=== PATIENT | male | born 1940 | race Caucasian/White ===

== ENCOUNTER 2018-03-25 16:14 | Inpatient (IN) | payer MEDICARE, OTHER ==
[~2018-03-25] VITALS: Ht 177.8 cm; Wt 93.0 kg
[~2018-03-25 16:14] MED LIST: ALBU18HF2 INH; ASPI-1053 PO; ATOR20TA66 PO; DOCU100C40 PO; DULO-31 PO; HYDR-4353 PO; IBUP-24 PO; LANS30CA56 PO; METO25TA6 PO; MIRT15TA8 PO; TEMA15CA5 PO
[2018-03-25 16:47] LABS: BASOPHILS % (AUTO) 0.5 % (0-1); EOSINOPHILS # (AUTO) 0.1 X10'3 (0-0.9); EOSINOPHILS % (AUTO) 1.3 % (0-6); HEMATOCRIT 29.7 % (42.0-52.0); HEMOGLOBIN 9.4 g/dl (14.0-17.9); LYMPHOCYTES # (AUTO) 1.9 X10'3 (1.1-4.8); LYMPHOCYTES % (AUTO) 20.3 % (21-51); MEAN CORPUSCULAR HEMOGLOBIN 23.1 PG (27.0-31.0); MEAN CORPUSCULAR HGB CONC 31.8 % (33.0-36.5); MEAN CORPUSCULAR VOLUME 72.8 FL (78-98); MEAN PLATELET VOLUME 9.4 FL (7.4-10.4); MONOCYTES # (AUTO) 0.5 X10'3 (0-0.9); MONOCYTES % (AUTO) 5.7 % (2-12); NEUTROPHILS % (AUTO) 72.2 % (42-75); PLATELET COUNT 296 X10'3 (140-440); RED BLOOD COUNT 4.08 X10'6 (4.70-6.10); RED CELL DISTRIBUTION WIDTH 17.6 % (11.5-14.5); WHITE BLOOD COUNT 9.5 X10'3 (4.5-11.0)
[2018-03-25 17:06] LABS: ALANINE AMINOTRANSFERASE 20 U/L (12-78); ALBUMIN 3.8 G/DL (3.4-5.0); ALBUMIN/GLOBULIN RATIO 1.2 (1.1-1.5); ALKALINE PHOSPHATASE 64 IU/L (46-116); ANION GAP 12 (8-16); ASPARTATE AMINO TRANSFERASE 13 U/L (10-37); BILIRUBIN,TOTAL 0.6 MG/DL (0.1-1.0); BLOOD UREA NITROGEN 18 MG/DL (7-18); CALCIUM 8.6 MG/DL (8.5-10.1); CHLORIDE 107 MMOL/L (99-107); GLUCOSE 184 MG/DL (70-104); POTASSIUM 4.2 MMOL/L (3.5-5.1); SODIUM 143 MMOL/L (135-145); TOTAL CARBON DIOXIDE 23.7 MMOL/L (24-32); TOTAL PROTEIN 7.1 G/DL (6.4-8.2); eGFR 33 ML/MIN
[2018-03-25 17:30] LABS: PARTIAL THROMBOPLASTIN TIME 22 SECONDS (22-32); PROTHROMBIN TIME 10.7 SECONDS (9.0-12.0)
[2018-03-25] MEDS ORDERED: normal saline 1000ML IV soln IVB ONE (20:15)
[2018-03-25] MEDS ORDERED: HYDROcodone/acetaminophen 10/325mg tab PO PRN (21:55)
[2018-03-25] MEDS ORDERED: magnesium hydroxide 30ml (MOM) UD suspension PO PRN (21:55)
[2018-03-25] MEDS ORDERED: acetaminophen 325mg tablet PO PRN ×2 (21:55)
[2018-03-25] MEDS ORDERED: mag hydrox/Alum hydrox/simeth 30ml oral suspension PO PRN (21:55)
[2018-03-25] MEDS ORDERED: ondansetron/PF 4mg/2ml inj IV PRN (21:55)
[2018-03-25] MEDS ORDERED: HYDROcodone/acetaminophen 5mg/325mg tablet PO PRN (21:55)
[2018-03-25] MEDS ORDERED: diphenhydrAMINE 25mg capsule PO PRN (21:55)
[2018-03-25] MEDS ORDERED: bisacodyl 10mg suppository rectal RC PRN (21:55)
[2018-03-25] MEDS ORDERED: diphenhydrAMINE 50 mg/ml inj IV PRN (21:55)
[2018-03-25] MEDS ORDERED: metoclopramide 5 mg/ml inj IV PRN (21:55)
[2018-03-25] MEDS ORDERED: HYDROmorphone 1 mg/ml syringe IV PRN ×2 (21:55)
[2018-03-25] MEDS ORDERED: normal saline 1000ml 1,000 ML IVB ONE (21:59)
[2018-03-25] MEDS ORDERED: diltiazem 5mg/ml 5ml inj. IV ONE (22:00)
[2018-03-25] MEDS: normal saline 1000ml 1,000 ML IV SCH (22:37)
[2018-03-25] MEDS ORDERED: MIRTAZAPINE 45 MG TABLET PO (22:42)
[2018-03-25 22:47] LABS: PHOSPHORUS 1.1 MG/DL (2.3-4.5)
[2018-03-25 23:26] LABS: D-DIMER 0.34 MG/L FEU (0-0.50)
[2018-03-26 00:15] VITALS: BP 140/59
[2018-03-26 00:15] LABS: CLARITY,URINE SLIGHTLY CLOUDY (Clear); COLOR,URINE YELLOW (Yellow); GLUCOSE, URINE NEGATIVE (Neg); KETONES,URINE 15 mg/dl (Neg); LEUKOCYTE ESTERASE ,URINE NEGATIVE (Neg); NITRITES, URINE NEGATIVE (Neg); OCCULT BLOOD,URINE NEGATIVE (Neg); PH,URINE 5.5 (4.8-8.0); PROTEIN,URINE TRACE mg/dl (Neg); UROBILINOGEN,URINE 0.2 E.U/dL (0.2-1.0)
[2018-03-26 00:23] LABS: UA COLLECTION TYPE VOIDED
[2018-03-26 00:25] LABS: FINE GRANULAR CAST 0-3 /LPF (NEGATIVE)
[2018-03-26 00:26] LABS: BACTERIA,URINE 1+ /HPF (Neg); MUCUS STRANDS MANY /LPF (Neg); RBC,URINE 0-2 /HPF (0-2); SQUAMOUS EPITHELIAL CELL,UR FEW /LPF (FEW); WBC,URINE 0-4 /HPF (0-4)
[2018-03-26] MEDS ORDERED: sodium phosphate inj. 30 MMOL in dextrose 5%-water 250 ML IV PRN ×2 (00:30→00:45)
[2018-03-26] MEDS ORDERED: albuterol 2.5 MG/3 ML nebule NEB PRN (00:30)
[2018-03-26] MEDS ORDERED: sodium phosphate inj. 15 MMOL in dextrose 5%-water 150 ML IV PRN ×2 (00:30→00:45)
[2018-03-26] MEDS ORDERED: Neutra Phos packet PO PRN ×2 (00:30→00:45)
[2018-03-26] MEDS ORDERED: mirtazapine 15mg tablet PO SCH ×2 (00:45→21:00)
[2018-03-26] MEDS: Neutra Phos packet PO SCH ×4 (01:23→20:39)
[2018-03-26] MEDS: enoxaparin 40mg/0.4ml syringe SUBCUT SCH ×2 (01:28→09:33)
[2018-03-26] MEDS: mirtazapine 15mg tablet PO SCH ×2 (01:28→20:40)
[2018-03-26] MEDS: normal saline 1000ml 1,000 ML IV SCH (03:49)
[2018-03-26 05:51] LABS: BASOPHILS % (AUTO) 0.4 % (0-1); EOSINOPHILS # (AUTO) 0.2 X10'3 (0-0.9); EOSINOPHILS % (AUTO) 1.7 % (0-6); HEMATOCRIT 24.5 % (42.0-52.0); LYMPHOCYTES # (AUTO) 2.3 X10'3 (1.1-4.8); LYMPHOCYTES % (AUTO) 25.4 % (21-51); MEAN CORPUSCULAR HEMOGLOBIN 23.9 PG (27.0-31.0); MEAN CORPUSCULAR HGB CONC 32.8 % (33.0-36.5); MEAN CORPUSCULAR VOLUME 72.7 FL (78-98); MEAN PLATELET VOLUME 10.4 FL (7.4-10.4); MONOCYTES # (AUTO) 0.6 X10'3 (0-0.9); MONOCYTES % (AUTO) 6.2 % (2-12); NEUTROPHILS # (AUTO) 6.1 X10'3 (1.8-7.7); NEUTROPHILS % (AUTO) 66.3 % (42-75); PLATELET COUNT 185 X10'3 (140-440); RED BLOOD COUNT 3.37 X10'6 (4.70-6.10); RED CELL DISTRIBUTION WIDTH 17.4 % (11.5-14.5); WHITE BLOOD COUNT 9.2 X10'3 (4.5-11.0)
[2018-03-26 06:00] VITALS: BP 137/59
[2018-03-26 06:27] LABS: ALANINE AMINOTRANSFERASE 17 U/L (12-78); ALKALINE PHOSPHATASE 49 IU/L (46-116); ANION GAP 10 (8-16); ASPARTATE AMINO TRANSFERASE 19 U/L (10-37); BILIRUBIN,TOTAL 0.3 MG/DL (0.1-1.0); BLOOD UREA NITROGEN 19 MG/DL (7-18); BUN/CREATININE RATIO 11.7 (5.4-32.0); CALCIUM 8.2 MG/DL (8.5-10.1); CHLORIDE 112 MMOL/L (99-107); CREATININE 1.62 MG/DL (0.60-1.10); GLUCOSE 110 MG/DL (70-104); POTASSIUM 3.9 MMOL/L (3.5-5.1); SODIUM 149 MMOL/L (135-145); TOTAL CARBON DIOXIDE 27.3 MMOL/L (24-32); TOTAL PROTEIN 5.9 G/DL (6.4-8.2); TROPONIN I < 0.04 NG/ML (0.0-0.05); eGFR 42 ML/MIN
[2018-03-26 07:44] LABS: PHOSPHORUS 3.9 MG/DL (2.3-4.5)
[2018-03-26] MEDS: docusate sod 100mg capsule PO SCH ×2 (08:00→20:40)
[2018-03-26] MEDS ORDERED: enoxaparin 50mg/0.5ml (from 3ml vial) syringe SUBCUT SCH (08:00)
[2018-03-26] MEDS ORDERED: enoxaparin 40mg/0.4ml syringe SUBCUT SCH (08:00)
[2018-03-26] MEDS ORDERED: docusate sod 100mg capsule PO SCH (08:00)
[2018-03-26] MEDS: aspirin 81mg tab.chew PO SCH (09:31)
[2018-03-26] MEDS: metoprolol tartrate 12.5mg (1/2 tablet) PO SCH ×2 (09:32→20:40)
[2018-03-26] MEDS: atorvastatin 20mg tablet PO SCH (09:32)
[2018-03-26] MEDS: duloxetine 30mg CAPSULE.DR PO SCH ×3 (09:32→20:40)
[2018-03-26] MEDS: pantoprazole 40mg Tablet.DR PO SCH (09:32)
[2018-03-26 10:00] VITALS: BP 122/57
[2018-03-26] MEDS ORDERED: LORazepam 2 mg/ml vial IV ONE (13:25)
[2018-03-26 14:00] VITALS: BP 118/59
[2018-03-26 14:26] LABS: FERRITIN 7 NG/ML (26-388)
[2018-03-26 14:56] LABS: % IRON SATURATION 10 % (11-46); IRON 34 UG/DL (53-167); TOTAL IRON BINDING CAPACITY 352 UG/DL (259-388)
[2018-03-26] MEDS ORDERED: dextrose 5%-1/2 normal saline 1,000 ML IV SCH (17:05)
[2018-03-26] MEDS ORDERED: MESSAGE TO PHARMACY PO ONE (17:10)
[2018-03-26] MEDS ORDERED: glucagon, human recombinant 1mg kit SUBCUT PRN (17:10)
[2018-03-26] MEDS ORDERED: dextrose 50%-water 50ml dispensing syringe IV PRN ×2 (17:10)
[2018-03-26] MEDS ORDERED: dextrose ORAL solution 15 GM/59 ML bottle PO PRN ×2 (17:10)
[2018-03-26] MEDS ORDERED: insulin Lispro (HumaLOG) vial - multi-dose SQ SCH (17:10)
[2018-03-26 17:12] LABS: OCCULT BLOOD STOOL POSITIVE (Neg)
[2018-03-26] MEDS: sodium chloride 0.45% 1,000 ML IV SCH (17:40)
[2018-03-26 18:00] VITALS: BP 131/77
[2018-03-26 19:30] LABS: HEMOGLOBIN A1C 6.8 % (4.5-6.2)
[2018-03-26] MEDS: heparin, porcine 5000 units/ml vial SQ SCH (20:41)
[2018-03-26] MEDS ORDERED: insulin glargine (Lantus) pen - multi-dose SQ SCH (21:00)
[2018-03-26 22:00] VITALS: BP 144/60
[2018-03-27 02:00] VITALS: BP 149/75
[2018-03-27] MEDS: sodium chloride 0.45% 1,000 ML IV SCH ×2 (03:07→13:15)
[2018-03-27 06:00] VITALS: BP 144/75
[2018-03-27 07:13] LABS: ALANINE AMINOTRANSFERASE 16 U/L (12-78); ALBUMIN 2.9 G/DL (3.4-5.0); ALKALINE PHOSPHATASE 51 IU/L (46-116); ANION GAP 6 (8-16); ASPARTATE AMINO TRANSFERASE 15 U/L (10-37); BILIRUBIN,TOTAL 0.3 MG/DL (0.1-1.0); BLOOD UREA NITROGEN 21 MG/DL (7-18); BUN/CREATININE RATIO 16.7 (5.4-32.0); CALCIUM 7.9 MG/DL (8.5-10.1); CHLORIDE 109 MMOL/L (99-107); CREATININE 1.26 MG/DL (0.60-1.10); GLUCOSE 115 MG/DL (70-104); MAGNESIUM 1.6 MG/DL (1.5-2.4); PHOSPHORUS 3.1 MG/DL (2.3-4.5); POTASSIUM 4.5 MMOL/L (3.5-5.1); SODIUM 143 MMOL/L (135-145); TOTAL CARBON DIOXIDE 27.9 MMOL/L (24-32); TOTAL PROTEIN 5.9 G/DL (6.4-8.2); eGFR 56 ML/MIN
[2018-03-27 07:22] LABS: BASOPHILS % (AUTO) 0.4 % (0-1); EOSINOPHILS # (AUTO) 0.3 X10'3 (0-0.9); EOSINOPHILS % (AUTO) 3.4 % (0-6); HEMATOCRIT 23.9 % (42.0-52.0); HEMOGLOBIN 7.8 g/dl (14.0-17.9); LYMPHOCYTES # (AUTO) 1.9 X10'3 (1.1-4.8); LYMPHOCYTES % (AUTO) 25.2 % (21-51); MEAN CORPUSCULAR HEMOGLOBIN 23.8 PG (27.0-31.0); MEAN CORPUSCULAR HGB CONC 32.8 % (33.0-36.5); MEAN CORPUSCULAR VOLUME 72.7 FL (78-98); MEAN PLATELET VOLUME 10.6 FL (7.4-10.4); MONOCYTES # (AUTO) 0.5 X10'3 (0-0.9); MONOCYTES % (AUTO) 6.3 % (2-12); NEUTROPHILS % (AUTO) 64.7 % (42-75); PLATELET COUNT 194 X10'3 (140-440); RED BLOOD COUNT 3.29 X10'6 (4.70-6.10); RED CELL DISTRIBUTION WIDTH 17.2 % (11.5-14.5); WHITE BLOOD COUNT 7.7 X10'3 (4.5-11.0)
[2018-03-27 07:31] LABS: PLATELET ESTIMATE NORMAL
[2018-03-27 07:32] LABS: GIANT PLATELET FEW
[2018-03-27 07:33] LABS: ACANTHOCYTES 1+; ANISOCYTOSIS 1+; HYPOCHROMASIA 1+; POLYCHROMASIA 1+; SCHISTOCYTES 1+
[2018-03-27] MEDS: docusate sod 100mg capsule PO SCH (08:00)
[2018-03-27] MEDS: aspirin 81mg tab.chew PO SCH (08:53)
[2018-03-27] MEDS: metoprolol tartrate 12.5mg (1/2 tablet) PO SCH (08:53)
[2018-03-27] MEDS: duloxetine 30mg CAPSULE.DR PO SCH ×2 (08:53→13:40)
[2018-03-27] MEDS: atorvastatin 20mg tablet PO SCH (08:53)
[2018-03-27] MEDS: pantoprazole 40mg Tablet.DR PO SCH (08:53)
[2018-03-27] MEDS: Neutra Phos packet PO SCH ×2 (08:53→13:00)
[2018-03-27] MEDS: heparin, porcine 5000 units/ml vial SQ SCH (08:54)
[2018-03-27 10:00] VITALS: BP 126/59
[2018-03-27] MEDS ORDERED: FURO-150 PO (15:32)
== END 2018-03-27 15:50 | disposition home or self-care (01) | DRG 682 ==
LOC: ER 16:14 → ED HOLD 21:52 → ORTHO 4S 23:13
PROVIDERS: ADMIT Family Medicine; ATTEND Family Medicine
PROC: 4A10X4Z Monitoring of Central Nervous Electrical Activity, External Approach (ICD-10-PCS; principal; 2018-03-26)
PROC: 3E02340 Introduction of Influenza Vaccine into Muscle, Percutaneous Approach (ICD-10-PCS; 2018-03-27)
DX: N17.9 Acute kidney failure, unspecified (principal); G93.41 Metabolic encephalopathy; R65.11 Systemic inflammatory response syndrome (SIRS) of non-infectious origin with acute organ dysfunction; I13.0 Hypertensive heart and chronic kidney disease with heart failure and stage 1 through stage 4 chronic kidney disease, or unspecified chronic kidney disease; E87.0 Hyperosmolality and hypernatremia; I25.10 Atherosclerotic heart disease of native coronary artery without angina pectoris; G89.29 Other chronic pain; M54.9 Dorsalgia, unspecified; E83.39 Other disorders of phosphorus metabolism; I48.91 Unspecified atrial fibrillation; D50.9 Iron deficiency anemia, unspecified; E11.21 Type 2 diabetes mellitus with diabetic nephropathy; E11.22 Type 2 diabetes mellitus with diabetic chronic kidney disease; E86.0 Dehydration; I50.9 Heart failure, unspecified; N18.9 Chronic kidney disease, unspecified; Z95.1 Presence of aortocoronary bypass graft; Z88.5 Allergy status to narcotic agent; Z79.899 Other long term (current) drug therapy; Z79.82 Long term (current) use of aspirin; Z23 Encounter for immunization
CPT/HCPCS: 36415; 70450; 70544; 70551; 71045; 80053; 81001; 82272; 82728; 82948; 83036; 83540; 83550; 83735; 83880; 83970; 84100; 84443; 84484; 85025; 85379; 85610; 85730; 87070; 87088; 93005; 95816; 96360; 99285; J1644; J1650; J1815; J2060; J3490; J7030

== ENCOUNTER 2018-06-23 14:07 | Outpatient (CLI) | payer MEDICARE, OTHER ==
[~2018-06-23] VITALS: Ht 179.1 cm; Wt 97.1 kg
[~2018-06-23 14:07] MED LIST changes: -HYDR-4353 PO; -TEMA15CA5 PO
[2018-06-23 14:50] LABS: TOTAL HEMOGLOBIN 9.1 G/dl (14.0-18.0)
[2018-06-23] MEDS ORDERED: albuterol 2.5 MG/3 ML nebule NEB ONE (15:00)
== END 2018-06-23 23:59 | disposition home or self-care (01) ==
LOC: RT 14:07
PROVIDERS: ATTEND Internal Medicine Pulmonary Disease
DX: J44.9 Chronic obstructive pulmonary disease, unspecified (principal); R91.8 Other nonspecific abnormal finding of lung field; I10 Essential (primary) hypertension; Z87.891 Personal history of nicotine dependence; Z98.890 Other specified postprocedural states; Z88.5 Allergy status to narcotic agent
CPT/HCPCS: 85018; 94060; 94727; 94729; 94760